=== PATIENT | male | born 1990 | race Caucasian/White ===

== ENCOUNTER 2018-04-11 16:14 | Emergency (ER) | payer OTHER ==
[2018-04-11 16:29] VITALS: BP 132/74
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
== END 2018-04-11 18:17 | disposition home or self-care (01) ==
DX: S16.1XXA Strain of muscle, fascia and tendon at neck level, initial encounter (principal); S09.90XA Unspecified injury of head, initial encounter; M54.31 Sciatica, right side; V53.1XXA Passenger in pick-up truck or van injured in collision with car, pick-up truck or van in nontraffic accident, initial encounter; Y92.410 Unspecified street and highway as the place of occurrence of the external cause

== ENCOUNTER 2018-07-13 22:02 | Emergency (ER) | payer SELFPAY ==
[2018-07-13 22:09] VITALS: BP 117/85
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
[2018-07-13] MEDS ORDERED: NS 1,000 ML IV ONE (22:21)
[2018-07-13] MEDS ORDERED: IOPAMIDOL (ISOVUE 370) 100 ML BTL IV ONE (22:41)
[2018-07-13 22:51] LABS: PLATELET COUNT 207 10^3/uL (150-400)
== END 2018-07-13 23:50 | disposition left against medical advice (07) ==
DX: Z53.20 Procedure and treatment not carried out because of patient's decision for unspecified reasons (principal); M79.604 Pain in right leg
CPT/HCPCS: 84484-ER; Q9967

== ENCOUNTER 2018-07-15 11:06 | Emergency (ER) | payer SELFPAY ==
--- NOTE | 2018-07-15 12:14 | EDPHY ---
H & P Stated Complaint: seen 2 days ago for syncope/?cva - ama, since having pain LLE Time Seen by Provider: 07/15/18 11:54 - Personal History Tetanus Vaccine Date: < 10 years - Medical/Surgical History Hx Asthma: No Hx Chronic Respiratory Disease: No Hx Diabetes: No Hx Cardiac Disease: No Hx Renal Disease: No Hx Cirrhosis: No Hx Alcoholism: No Hx HIV/AIDS: No Hx Splenectomy or Spleen Trauma: No Other PMH: DENIES - Social History Smoking Status: Never smoked Constitutional: Initial Vital Signs Temperature (C) 36.4 C 07/15/18 11:17 Heart Rate 66 07/15/18 11:17 Respiratory Rate 16 07/15/18 11:17 Blood Pressure 120/69 07/15/18 11:17 O2 Sat (%) 100 07/15/18 11:17 O2 Delivery Mode Room Air Allergies/Adverse Reactions: Penicillins Allergy (Verified 07/15/18 11:22) Home Medications: Medication Instructions Recorded NK [No Known Home Meds] 04/11/18 Medical Decision Making - Diagnostics Imaging: Discussed imaging studies w/ dry food products mixer Radiologist ED Course/Re-evaluation: CHIEF COMPLAINT: Left leg pain HISTORY OF PRESENT ILLNESS: 2 days ago this patient was in the midst of a trip from [place] to [place] via car. About 10 or 12 hr into the trip he developed some pain in his right calf that was sharp and intermittent in nature. He presented here that evening but then decided he did not want any workup and left. He had more pain yesterday in the calf although still intermittent anion some pain today he decided to come back for further workup. He denies shortness of breath. He denies any other symptoms. REVIEW OF SYSTEMS: A comprehensive 10 system review of systems is otherwise negative aside from elements mentioned in the history of present illness and medical decision making. PHYSICAL EXAM: HR, BP, O2 Sat, RR. Temp noted General Appearance: Alert, well hydrated, appropriate, and non-toxic appearing. Head: Atraumatic without scalp tenderness or obvious injury Eyes: Pupils equal, round, reactive to light and accommodation, EOMI, no trauma , no injection. Nose: Atraumatic, no rhinorrhea, clear. Throat: There is no erythema or exudates, no lesions, normal tonsils, mucus membranes moist. Neck: Supple, nontender, no lymphadenopathy. Respiratory: No retractions, no distress, no wheezes, and no accessory muscle use. Lungs are clear to auscultation bilaterally. Cardiovascular: Regular rate and rhythm, no murmurs, rubs, or gallops. Good capillary refill all extremities. Gastrointestinal: Abdomen is soft, nontender, non-distended, no masses, no rebound, no guarding, no peritoneal signs. Musculoskeletal: Normal active ROM of all extremities, atraumatic. Neurological: Alert, appropriate, and interactive. The patient has non-focal cranial nerves, motor, sensory, and cerebellar exam. Skin: No rashes, good turgor, no nodules on palpation. Past medical history: None Past surgical history: None Family history: Noncontributory Social history: Single, employed, does not abuse tobacco drugs or alcohol DIAGNOSTICS/PROCEDURES/CRITICAL CARE TIME: Study: Ultrasound of the: Right lower extremity Indication: Rule out clot Results: US scan of the right lower extremity was obtained. The results of the study are normal. The study was read by the radiologist, Dr. Posadas. I viewed the images myself on the PACS system. DIFFERENTIAL DIAGNOSIS: The differential diagnosis for the patient's leg pain included but was not limited to venous stasis, trauma, and DVT. MEDICAL DECISION MAKING: This patient has no physical findings and specifically no swelling or pain in the right calf on my exam. Ultrasound is pending. US is negative for DVT. Reassessed patient and discussed findings. He will be discharged home with standard care and follow up instructions. Return precautions discussed. Departure - Departure Disposition: Home, Routine, Self-Care Clinical Impression: Left leg pain Condition: Good Instructions: Leg Pain (ED) Additional Instructions: Follow up with your primary care provider as needed for unimproved symptoms. Referrals: Real Villalobos MD [Medical Doctor] - As per Instructions
[2018-07-15 12:51] VITALS: BP 122/76
== END 2018-07-15 12:52 | disposition home or self-care (01) ==
DX: M79.605 Pain in left leg (principal)